=== PATIENT | male | born 1965 | race Two or more races ===

== ENCOUNTER 2020-05-28 17:19 | Emergency (ER) | payer SELFPAY ==
[~2020-05-28] VITALS: Ht 165.1 cm; Wt 77.0 kg
[2020-05-28] MEDS ORDERED: FAMOTIDINE 20MG TABLET PO ONE (19:45)
[2020-05-28] MEDS ORDERED: METOCLOPRAMIDE HCL 10MG TABLET PO ONE (19:45)
[2020-05-28 20:07] LABS: BASOPHILS % 0.4 % (0.0-2.0); EOSINOPHILS % 0.1 % (0.0-5.0); HEMOGLOBIN. 13.3 g/dL (14.0-18.0); LYMPHOCYTES % 7.1 % (20.0-50.0); MEAN CORPUSCULAR HEMOGLOBIN 29.3 pg (28.0-32.0); MEAN CORPUSCULAR VOLUME 85.6 fL (80.0-94.0); MEAN PLATELET VOLUME 8.3 fl (7.4-10.4); MONOCYTES % 6.2 % (2.0-8.0); NEUTROPHILS % 86.2 % (40.0-76.0); PLATELET 286 x1000/uL (130-400); RED BLOOD CELL COUNT 4.56 mill/uL (4.7-6.1); RED CELL DISTRIBUTION WIDTH 16.7 % (11.6-14.6)
[2020-05-28 20:14] LABS: CHLORIDE 106 mEq/L (98-107)
[2020-05-28] MEDS ORDERED: MAGNESIUM/ALUMINUM HYDROXIDE/SIMETHICONE 30ML UDC PO ONE (21:45)
[2020-05-28 21:59] VITALS: BP 180/95
== END 2020-05-28 22:43 | disposition home or self-care (01) ==
LOC: ER 17:19
DX: R07.89 Other chest pain (principal); E11.9 Type 2 diabetes mellitus without complications; I10 Essential (primary) hypertension; F19.10 Other psychoactive substance abuse, uncomplicated
CPT/HCPCS: 36415; 71045; 80053; 83880; 84484; 85025; 93005; 99285; J8597